=== PATIENT | female | born 1995 | race African-American/Black ===

== ENCOUNTER 2016-12-21 12:49 | Emergency (ER) | payer BC ==
[~2016-12-21] VITALS: Ht 160 cm; Wt 79.4 kg
--- NOTE | ~2016-12-21 | EKG ---
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
[~2016-12-21 12:49] MED LIST: ADVAIR HFA115 MCG/21 INH; AMOXICILLIN 50500 M1; CURCUMIN1 GM; MOBIC15 MG PO; MOBIC7.5 M1 PO; NAPROSYN500 MG PO; NASACORT10.8 ML NS; NORCO 5-325 TA1 EACH PO; PREDNISONE50 MG PO; SINGULAIR 10 MG10 M1 PO; VENTOLIN HFA 1818 GM INH; ZYRTEC10 M2 PO
[2016-12-21 13:11] LABS: ABSOLUTE NEUTROPHILS 3.8 thou/uL (1.4-8.2); BASOPHILS 0.3 % (0.0-2.0); EOSINOPHILS 2.9 % (0.0-3.0); HEMATOCRIT 34.1 % (37.0-47.0); HEMOGLOBIN 11.5 gm/dL (12.0-15.0); LYMPHOCYTES 27.8 % (24.0-44.0); MCH 29.2 pg (26.0-34.0); MCHC 33.8 g/dL (28.0-37.0); MCV 86.4 fL (80.0-100.0); MONOCYTES 8.9 % (1.0-8.0); PLATELET COUNT 204 thou/uL (150-400); POLYS 60.1 % (36.0-66.0); RBC 3.94 mil/uL (4.20-5.00); RDW 14.3 % (10.5-14.5); WBC 6.4 thou/uL (4.0-11.0)
[2016-12-21 13:14] LABS: MANUAL DIFF NO
[2016-12-21 13:21] LABS: ANION GAP 5 mmol/L (7-16); BUN 10 mg/dL (7-18); CALCIUM 8.8 mg/dL (8.5-10.1); CHLORIDE 108 mmol/L (98-107); CO2 25 mmol/L (21-32); CREATININE 0.8 mg/dL (0.6-1.0); GLUCOSE 93 mg/dL (74-106); POTASSIUM 3.7 mmol/L (3.5-5.1); SODIUM 138 mmol/L (136-145)
[2016-12-21 13:30] LABS: TROPONIN-I < 0.04 ng/mL (<0.04-0.07)
[2016-12-21 15:14] VITALS: BP 113/82
== END 2016-12-21 15:33 | disposition home or self-care (01) ==
LOC: ER 12:49
PROVIDERS: Emergency Medicine
DX: R55 Syncope and collapse (principal); R07.9 Chest pain, unspecified; R11.2 Nausea with vomiting, unspecified; M19.90 Unspecified osteoarthritis, unspecified site

== ENCOUNTER 2018-06-05 17:33 | Emergency (ER) | payer OTHER ==
[~2018-06-05] VITALS: Ht 160 cm; Wt 72.6 kg
[2018-06-05 18:45] VITALS: BP 107/66
[2018-06-05] MEDS ORDERED: ZOFRAN ODT4 MG DISSOLVE (18:52)
== END 2018-06-05 19:46 | disposition home or self-care (01) ==
LOC: ER 17:33
DX: S00.83XA Contusion of other part of head, initial encounter (principal); S00.03XA Contusion of scalp, initial encounter; R11.0 Nausea; M06.9 Rheumatoid arthritis, unspecified; W22.8XXA Striking against or struck by other objects, initial encounter; Y92.89 Other specified places as the place of occurrence of the external cause; Y99.0 Civilian activity done for income or pay; Y99.8 Other external cause status

== ENCOUNTER 2018-06-07 11:53 | Emergency (ER) | payer BC ==
[~2018-06-07] VITALS: Ht 160 cm; Wt 68.0 kg
[~2018-06-07 11:53] MED LIST changes: +ZOFRAN ODT4 MG DISSOLVE
[2018-06-07] MEDS ORDERED: SULFASALAZINE500 M1 PO (12:27)
[2018-06-07 14:53] VITALS: BP 101/67
[2018-06-07] MEDS ORDERED: BUTALB-APAP-CA1 EACH PO (15:19)
== END 2018-06-07 15:38 | disposition home or self-care (01) ==
LOC: ER 11:53
DX: S09.90XA Unspecified injury of head, initial encounter (principal); R42 Dizziness and giddiness; M54.9 Dorsalgia, unspecified; M06.9 Rheumatoid arthritis, unspecified; X58.XXXA Exposure to other specified factors, initial encounter; Y92.89 Other specified places as the place of occurrence of the external cause; Y93.89 Activity, other specified; Y99.8 Other external cause status

== ENCOUNTER 2019-01-17 04:51 | Emergency (ER) | payer BC ==
[~2019-01-17] VITALS: Ht 160 cm; Wt 74.4 kg
[~2019-01-17 04:51] MED LIST changes: +BUTALB-APAP-CA1 EACH PO; +SULFASALAZINE500 M1 PO
[2019-01-17 05:52] LABS: ABSOLUTE NEUTROPHILS 4.2 thou/uL (1.4-8.2); BASOPHILS 0.3 % (0.0-2.0); EOSINOPHILS 1.5 % (0.0-3.0); HEMATOCRIT 35.4 % (37.0-47.0); HEMOGLOBIN 11.6 gm/dL (12.0-15.0); LYMPHOCYTES 27.9 % (24.0-44.0); MCH 29.4 pg (26.0-34.0); MCHC 32.7 g/dL (28.0-37.0); MCV 89.9 fL (80.0-100.0); MONOCYTES 8.8 % (1.0-8.0); PLATELET COUNT 227 thou/uL (150-400); POLYS 61.5 % (36.0-66.0); RBC 3.94 mil/uL (4.20-5.00); RDW 13.6 % (10.5-14.5); WBC 6.8 thou/uL (4.0-11.0)
[2019-01-17 06:02] LABS: CALCIUM 8.8 mg/dL (8.5-10.1); CREATININE 0.7 mg/dL (0.6-1.0); MAGNESIUM 1.8 mg/dL (1.8-2.4); POTASSIUM 3.7 mmol/L (3.5-5.1)
[2019-01-17 06:23] VITALS: BP 124/85
== END 2019-01-17 06:23 | disposition home or self-care (01) ==
LOC: ER 04:51
PROVIDERS: Emergency Medicine
DX: R20.2 Paresthesia of skin (principal); T43.225A Adverse effect of selective serotonin reuptake inhibitors, initial encounter; M06.9 Rheumatoid arthritis, unspecified; Y92.89 Other specified places as the place of occurrence of the external cause

== ENCOUNTER → 2020-04-21 | Outpatient (CLI) | payer BC | LOC: LAB 14:15 | PROVIDERS: ATTEND Nurse Practitioner | DX: R05 Cough (principal); Z20.828 Contact with and (suspected) exposure to other viral communicable diseases ==